=== PATIENT | male | born 1995 | race Caucasian/White ===

== ENCOUNTER 2024-06-19 03:29 | Emergency (ER) | payer OTHER ==
[~2024-06-19] VITALS: Ht 170.2 cm; Wt 75.0 kg
[2024-06-19 03:41] VITALS: BP_SYST 138
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
[2024-06-19 03:58] VITALS: BP_DIAS 135; PULSE 65; RESP 17; TEMP 98.1; O2SAT 98
== END 2024-06-19 04:02 | disposition home or self-care (01) ==
LOC: ER 03:30
DX: Z77.21 Contact with and (suspected) exposure to potentially hazardous body fluids (principal)
CPT/HCPCS: 99281